=== PATIENT | male | born 1985 | race Caucasian/White ===

== ENCOUNTER 2016-03-24 20:34 | Emergency (ER) | payer MEDICAID ==
[~2016-03-24] VITALS: Ht 167.6 cm; Wt 79.4 kg
[2016-03-24 20:54] VITALS: BP 154/90
[2016-03-25] MEDS ORDERED: TDAP [DIPH/PERTUSSIS/TET] 0.5 ML VIAL IM ONE ×2 (00:24→00:30)
== END 2016-03-25 00:31 | disposition home or self-care (01) ==
LOC: ER 20:35
DX: S81.852A Open bite, left lower leg, initial encounter (principal); W54.0XXA Bitten by dog, initial encounter; Y93.9 Activity, unspecified; Y92.9 Unspecified place or not applicable; Y99.9 Unspecified external cause status
CPT/HCPCS: 90471; 90715; 99283; A4606; A6402; Z7610

== ENCOUNTER 2016-06-11 17:21 | Emergency (ER) | payer MEDICAID ==
[~2016-06-11] VITALS: Ht 167.6 cm; Wt 79.4 kg
[2016-06-11 17:21] VITALS: BP 131/93
[2016-06-11] MEDS ORDERED: IBUPROFEN 600 MG TABLET PO ONE ×2 (18:30→18:37)
== END 2016-06-11 18:45 | disposition home or self-care (01) ==
LOC: ER 17:22
DX: J06.9 Acute upper respiratory infection, unspecified (principal); J02.9 Acute pharyngitis, unspecified; F10.20 Alcohol dependence, uncomplicated
CPT/HCPCS: 99282; A4606; Z7610

== ENCOUNTER 2018-04-27 06:56 | Emergency (ER) | payer MEDICAID, OTHER ==
[~2018-04-27] VITALS: Ht 167.6 cm; Wt 79.4 kg
[2018-04-27 07:12] VITALS: BP 127/83
--- NOTE | 2018-04-27 07:41 | NUR ---
seen and eval by Dr Szymanski and dc home with RX
== END 2018-04-27 07:44 | disposition home or self-care (01) ==
LOC: ER 06:58
DX: J40 Bronchitis, not specified as acute or chronic (principal); J02.9 Acute pharyngitis, unspecified; F10.10 Alcohol abuse, uncomplicated; Y90.9 Presence of alcohol in blood, level not specified
CPT/HCPCS: 99283; A4606

== ENCOUNTER 2019-04-03 16:39 | Emergency (ER) | payer OTHER ==
[~2019-04-03] VITALS: Ht 172.7 cm; Wt 79.4 kg
[2019-04-03 16:49] VITALS: BP 123/74
[2019-04-03] MEDS ORDERED: FLUORESCEIN SODIUM OPHTH 1 EA STRIP ONE (17:14)
== END 2019-04-03 17:55 | disposition home or self-care (01) ==
LOC: ER 16:40
DX: T15.91XA Foreign body on external eye, part unspecified, right eye, initial encounter (principal); X58.XXXA Exposure to other specified factors, initial encounter; Y93.89 Activity, other specified; Y92.89 Other specified places as the place of occurrence of the external cause; Y99.8 Other external cause status
CPT/HCPCS: 99283; J7030

== ENCOUNTER 2019-04-09 14:04 | Emergency (ER) | payer OTHER ==
[~2019-04-09] VITALS: Ht 170.2 cm; Wt 74.8 kg
[2019-04-09 14:35] VITALS: BP 145/80
== END 2019-04-09 14:40 | disposition home or self-care (01) ==
LOC: ER 14:12
DX: S71.111D Laceration without foreign body, right thigh, subsequent encounter (principal); F10.10 Alcohol abuse, uncomplicated; Y90.9 Presence of alcohol in blood, level not specified; X58.XXXD Exposure to other specified factors, subsequent encounter

== ENCOUNTER 2019-04-15 16:15 | Emergency (ER) | payer OTHER ==
[~2019-04-15] VITALS: Ht 170.2 cm; Wt 81.6 kg
[2019-04-15 16:50] VITALS: BP 126/89
--- NOTE | 2019-04-15 16:53 | NUR ---
visit for suture removal. lac repair 10 days ago.
--- NOTE | 2019-04-15 17:07 | NUR ---
AT BEDSIDE FOR SUTURE REMOVAL.
== END 2019-04-15 17:17 | disposition home or self-care (01) ==
LOC: ER 16:19
DX: S71.111D Laceration without foreign body, right thigh, subsequent encounter (principal); X58.XXXD Exposure to other specified factors, subsequent encounter

== ENCOUNTER 2020-11-21 16:14 | Emergency (ER) | payer MEDICAID, OTHER ==
[~2020-11-21] VITALS: Ht 167.6 cm; Wt 77.1 kg
[2020-11-21] MEDS ORDERED: IBUPROFEN 400 MG TABLET PO ONE (16:30)
[2020-11-21] MEDS ORDERED: IBUPROFEN 400 MG TABLET ONE (16:40)
--- NOTE | 2020-11-21 16:45 | NUR ---
BIBS for c/o lower back pain x 1 week. Rates pain 08/26. Denies trauma. No apparent deformity noted. In room air and denies SOB. Respiration regular and unlabored. Will continue to monitor the patient.
[2020-11-21 17:28] LABS: BILIRUBIN,URINE NEGATIVE (NEGATIVE); COLOR,URINE YELLOW (YELLOW); LEUKOCYTE ESTERASE ,URINE NEGATIVE (NEGATIVE); NITRITE, URINE NEGATIVE (NEGATIVE); PH,URINE 6.5 (5.0-8.0); PROTEIN,URINE NEGATIVE (NEGATIVE); UGLUCOSE NEGATIVE (NEGATIVE); UROBILINOGEN,URINE 0.2 EU/dL (0.2)
[2020-11-21 17:40] LABS: BACTERIA,URINE None seen /HPF (None Seen); SQUAMOUS EPITHELIAL CELL,UR 0-2 /HPF (None Seen); WBC,URINE 0-2 /HPF (0-3)
[2020-11-21] MEDS ORDERED: IBUP-1957 PO (17:49)
[2020-11-21] MEDS ORDERED: CYCL5TAB PO (17:49)
[2020-11-21 18:36] VITALS: BP 128/85
--- NOTE | 2020-11-21 18:36 | NUR ---
Patient discharged to home in stable condition. Written and verbal after care instructions given. Patient verbalizes understanding of instruction.
== END 2020-11-21 18:36 | disposition home or self-care (01) ==
LOC: ER 16:18
DX: S39.012A Strain of muscle, fascia and tendon of lower back, initial encounter (principal); X58.XXXA Exposure to other specified factors, initial encounter; Y93.89 Activity, other specified; Y92.89 Other specified places as the place of occurrence of the external cause; Y99.8 Other external cause status
CPT/HCPCS: 71045-TC; 81001

== ENCOUNTER 2021-06-16 18:49 | Emergency (ER) | payer MEDICAID ==
[~2021-06-16] VITALS: Ht 167.6 cm; Wt 79.4 kg
[~2021-06-16 18:49] MED LIST: CYCL5TAB PO; IBUP-1957 PO
--- NOTE | 2021-06-16 19:04 | NUR ---
TO ER BED 1, BHARGAVI C/O ABDOMINAL PAIN, N/V/D X1WEEK, AAOX3, BREATHING EVEN AND NON LABORED, CONNECTED TO MONITOR, AWAITING MD BAKER
--- NOTE | 2021-06-16 19:09 | NUR ---
DR BETANCUR AT BEDSIDE FOR EVAL
--- NOTE | 2021-06-16 19:15 | NUR ---
IV LINE ESTABLISHED , RAC 18G BLOOD COLLECTED AND SENT TO LAB
[2021-06-16] MEDS ORDERED: MAG HYDROX/AL HYDROX/SIMETH 30 ML UDC PO ONE (19:30)
[2021-06-16] MEDS ORDERED: MAG HYDROX/AL HYDROX/SIMETH 30 ML UDC ONE (19:30)
--- NOTE | 2021-06-16 19:35 | NUR ---
PT TAKEN FOR CT SCAN
[2021-06-16 19:54] LABS: BILIRUBIN,URINE NEGATIVE (NEGATIVE); COLOR,URINE YELLOW (YELLOW); LEUKOCYTE ESTERASE ,URINE NEGATIVE (NEGATIVE); NITRITE, URINE NEGATIVE (NEGATIVE); PROTEIN,URINE NEGATIVE (NEGATIVE); UGLUCOSE NEGATIVE (NEGATIVE); UROBILINOGEN,URINE 0.2 EU/dL (0.2)
[2021-06-16 20:09] LABS: BASOPHILS % (AUTO) 0.5 % (0.0-2.0); EOSINOPHILS % (AUTO) 0.8 % (0.0-6.0); HEMATOCRIT 48 % (39-51); HEMOGLOBIN 16.5 g/dL (13.5-17.5); LYMPHOCYTES # (AUTO) 2.3 K/uL (0.8-4.8); MEAN CORPUSCULAR HGB CONC 35 g/dl (31.0-36.0); MEAN CORPUSCULAR VOLUME 93 fL (80-96); MONOCYTES # (AUTO) 0.6 K/uL (0.1-1.30); MONOCYTES % (AUTO) 7.8 % (2.0-12.0); NEUTROPHILS # (AUTO) 4.7 K/uL (1.8-8.9); NEUTROPHILS % (AUTO) 60.9 % (43.0-81.0); PLATELET COUNT (AUTO) 253 K/uL (150-450); RED BLOOD CELL COUNT(AUTO) 5.16 MIL/uL (4.5-6.0); WHITE BLOOD COUNT (AUTO) 7.8 K/uL (4.3-11.0)
[2021-06-16 21:28] LABS: ALANINE AMINOTRANSFERASE 29 U/L (12-78); ALBUMIN 4.2 g/dL (3.4-5.0); ALKALINE PHOSPHATASE 102 U/L (46-116); ASPARTATE AMINOTRANSFERASE 3 U/L (15-37); BILIRUBIN,DIRECT 0.1 mg/dL (0.0-0.2); BILIRUBIN,TOTAL 0.5 mg/dL (0.2-1.0); LIPASE 76 U/L (73-393)
[2021-06-16 21:34] LABS: CARBON DIOXIDE 25 mmol/L (21-32); CHLORIDE 102 mmol/L (98-107); GLUCOSE 97 mg/dL (74-106); POTASSIUM 4.1 mmol/L (3.5-5.1); SODIUM SERUM 139 mmol/L (136-145); UREA NITROGEN, BLOOD 16 mg/dL (7-18)
[2021-06-16] MEDS ORDERED: FAMO-131 PO (21:52)
[2021-06-16 22:05] VITALS: BP 131/76
--- NOTE | 2021-06-16 22:05 | NUR ---
Patient discharged to home in stable condition. Written and verbal after care instructions given. Patient verbalizes understanding of instruction.
== END 2021-06-16 22:06 | disposition home or self-care (01) ==
LOC: ER 18:54
DX: K29.70 Gastritis, unspecified, without bleeding (principal); R10.13 Epigastric pain; R11.2 Nausea with vomiting, unspecified; Z79.1 Long term (current) use of non-steroidal anti-inflammatories (NSAID); Z79.899 Other long term (current) drug therapy
CPT/HCPCS: 36415; 71045-TC; 80048-TC; 80076-TC; 83690-TC; 84484-TC; 85025-TC

== ENCOUNTER 2021-07-25 19:37 | Emergency (ER) | payer MEDICAID ==
[~2021-07-25] VITALS: Ht 167.6 cm; Wt 79.4 kg
[~2021-07-25 19:37] MED LIST changes: +FAMO-131 PO
--- NOTE | 2021-07-25 20:10 | NUR ---
PRESENTED TO THE ER FOR C/O R TESTICULAR PAIN X 4DAYS. GOWNED UP AND PLACED THE PT ON MONITOR, VSS. AWAITING FOR MD'S EVAL
[2021-07-25] MEDS ORDERED: IBUPROFEN 600 MG TABLET ONE (20:19)
--- NOTE | 2021-07-25 20:22 | NUR ---
JUSTIN JACQUES AT BEDSIDE.
[2021-07-25] MEDS ORDERED: IBUPROFEN 600 MG TABLET PO ONE (20:30)
--- NOTE | 2021-07-25 21:00 | NUR ---
URINE SPECIMEN SENT TO LAB
[2021-07-25] MEDS ORDERED: CIPR-262 PO (21:40)
[2021-07-25] MEDS ORDERED: IBUP-1957 PO (21:40)
--- NOTE | 2021-07-25 21:54 | NUR ---
Patient discharged to home in stable condition. Written and verbal after care instructions given. Patient verbalizes understanding of instruction.
[2021-07-25 21:55] VITALS: BP 132/70
[2021-07-25 22:02] LABS: BILIRUBIN,URINE NEGATIVE (NEGATIVE); COLOR,URINE YELLOW (YELLOW); LEUKOCYTE ESTERASE ,URINE NEGATIVE (NEGATIVE); NITRITE, URINE NEGATIVE (NEGATIVE); PH,URINE 5.5 (5.0-8.0); PROTEIN,URINE NEGATIVE (NEGATIVE); UGLUCOSE NEGATIVE (NEGATIVE); UROBILINOGEN,URINE 0.2 EU/dL (0.2)
== END 2021-07-25 21:55 | disposition home or self-care (01) ==
LOC: ER 19:37
DX: N45.1 Epididymitis (principal); Z79.899 Other long term (current) drug therapy
CPT/HCPCS: 76870-TC

== ENCOUNTER 2021-11-14 02:18 | Emergency (ER) | payer MEDICAID ==
[~2021-11-14] VITALS: Ht 170.2 cm; Wt 77.1 kg
[~2021-11-14 02:18] MED LIST changes: +CIPR-262 PO
--- NOTE | 2021-11-14 02:35 | NUR ---
BIBWIFE C/O LEFT SIDE CHEST PAIN X 1 DAY RADIATING TO LEFT ARM. PATIENT EXPERIENCED PAIN SINCE 7PM. PLACED COMFORTABLY IN BED. VITALS CHECKED.
--- NOTE | 2021-11-14 03:00 | NUR ---
IV CANNULA INSERTED ON LEFT AC USING G20. BLOOD DRAWN AND SENT TO LAB
[2021-11-14 03:07] LABS: BASOPHILS % (AUTO) 0.8 % (0.0-2.0); EOSINOPHILS % (AUTO) 2.1 % (0.0-6.0); HEMATOCRIT 45 % (39-51); HEMOGLOBIN 15.6 g/dL (13.5-17.5); LYMPHOCYTES # (AUTO) 2.6 K/uL (0.8-4.8); LYMPHOCYTES % (AUTO) 42.9 % (20.0-44.0); MEAN CORPUSCULAR HGB CONC 35 g/dl (31.0-36.0); MEAN CORPUSCULAR VOLUME 91 fL (80-96); MONOCYTES # (AUTO) 0.5 K/uL (0.1-1.30); MONOCYTES % (AUTO) 7.8 % (2.0-12.0); NEUTROPHILS # (AUTO) 2.8 K/uL (1.8-8.9); NEUTROPHILS % (AUTO) 46.4 % (43.0-81.0); PLATELET COUNT (AUTO) 221 K/uL (150-450); RED BLOOD CELL COUNT(AUTO) 4.87 MIL/uL (4.5-6.0); WHITE BLOOD COUNT (AUTO) 6.1 K/uL (4.3-11.0)
[2021-11-14 03:16] LABS: CARBON DIOXIDE 27 mmol/L (21-32); CHLORIDE 105 mmol/L (98-107); GLUCOSE 99 mg/dL (74-106); POTASSIUM 3.6 mmol/L (3.5-5.1); SODIUM SERUM 140 mmol/L (136-145); UREA NITROGEN, BLOOD 10 mg/dL (7-18)
--- NOTE | 2021-11-14 03:16 | NUR ---
CXR DONE AT BEDSIDE
--- NOTE | 2021-11-14 04:19 | NUR ---
IV CANNULA REMOVED
[2021-11-14 04:20] VITALS: BP 134/79
--- NOTE | 2021-11-14 04:20 | NUR ---
Patient discharged to home in stable condition. Written and verbal after care instructions given. Patient verbalizes understanding of instruction.
== END 2021-11-14 04:21 | disposition home or self-care (01) ==
LOC: ER 02:20
DX: R07.89 Other chest pain (principal); Z79.899 Other long term (current) drug therapy
CPT/HCPCS: 36415; 71045-TC; 80048-TC; 84484-TC; 85025-TC

== ENCOUNTER 2023-04-11 12:42 | Emergency (ER) | payer MEDICAID ==
[~2023-04-11] VITALS: Ht 170.2 cm; Wt 77.1 kg
[~2023-04-11 12:42] MED LIST changes: +CYCL10TA9 PO; +IBUP-1955 PO
[2023-04-11] MEDS ORDERED: AZIT500T PO (13:50)
[2023-04-11] MEDS ORDERED: GUAI1TBM19 PO (13:50)
[2023-04-11 14:00] VITALS: BP 125/79; O2SAT 98
== END 2023-04-11 13:56 | disposition home or self-care (01) ==
LOC: ER 12:49
DX: J40 Bronchitis, not specified as acute or chronic (principal); Z79.899 Other long term (current) drug therapy
CPT/HCPCS: 71045-TC